=== PATIENT | male | born 1955 | race Caucasian/White ===

== ENCOUNTER → 2020-08-18 11:19 | Outpatient (CLI) | payer MEDICARE, SELFPAY ==
--- NOTE | ~2020-08-18 | XR_ITS ---
EXAMINATION: XR chest 2V 08/18/2020 12:02 INDICATION: Wheezing. No fever. PROCEDURE: 2 view chest COMPARISON: No prior studies for comparison. FINDINGS: The lungs are clear. The cardiomediastinal silhouette is within normal limits. There are no pleural effusions. There is no pneumothorax suspected. There is a calcified granuloma right lowe r lung zone. IMPRESSION: 1: NO ACUTE CARDIOPULMONARY DISEASE. Reviewed, dictated and finalized at location B.
== END ==
DX: R06.2 Wheezing (principal)
CPT/HCPCS: 71046

== ENCOUNTER → 2020-08-22 08:01 | Outpatient (CLI) | payer MEDICARE, SELFPAY ==
--- NOTE | ~2020-08-22 | CT_ITS ---
EXAMINATION: CT abdomen pelvis wo con EXAM DATE: 08/22/2020 08:23 INDICATION: UTI with hematuria, kidney stone . TECHNIQUE: Spiral CT of the abdomen and pelvis was performed without contrast. Axial, coronal and sag ittal images were reviewed. The dose-length product (DLP) for this examination was 734.79 mGy-cm. T he exposure was tailored according to patient size (auto mA exposure control), and iterative reconstr uction (ASIR) was used as additional dose reduction technique. There is no prior study for compariso n. FINDINGS: There is extensive sigmoid diverticulosis. Between the sigmoid colon and the bladder there is a contained region which could be a large diverticulum or stool-filled pocket/abscess, but there i s no fluid. This measures about 3.5 cm in diameter. There is a tract visualized between the main lume n of the colon in this pocket. There is extensive adjacent inflammation. Differential diagnosis inclu marbin inflammatory cancer and diverticulitis. Additionally, there is wall thickening of the bladder superior wall contiguous to this pocket. There is also small amount of gas within the bladder, could be from recent instrumentation, or could indica te fistula between the bladder and the contained stool-filled pocket region described above. There is no nephrolithiasis or hydronephrosis. The prostate is unremarkable. Some punctate pancrea tic calcifications, chronic pancreatitis. Several liver lesions most likely cysts largest in the left liver lobe at 1.7 cm. The adrenal glands, spleen are unremarkable. There is possible punctate joann lithiasis. There is no retroperitoneal or pelvic lymphadenopathy. Small left inguinal fat-containi ng hernia. There are no findings to suggest appendicitis. The stomach and small bowel are unremarkable. No free intraperitoneal gas. The heart is normal in size. There are no pericardial or pleural effusions. The lung bases are unremarkable. There are no osteoblastic or osteolytic lesions identified. 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 Mild scattered arter iosclerotic disease. IMPRESSION: 1. Stool filled pocket between sigmoid colon and bladder, with extensive regional inflammation, sigm oid and bladder wall thickening, and possible fistula to the bladder. Could be sequela from diverticu litis or inflammatory cancer. 2. Chronic pancreatitis. 3. Other chronic findings. I discussed this case, recommendation of antibiotics, follow-up CT, GI consult for colonoscopy to exc lude underlying inflammatory cancer with Sony PinedaMD at 08/22/2020 10:49CDT. Since patient h as UTI, could also consider cystogram to evaluate for fistula. Reviewed, dictated and finalized at location A. IMPRESSION: 1. Stool filled pocket between sigmoid colon and bladder, with extensive regio nal inflammation, sigmoid and bladder wall thickening, and possible fistula to the bladder. Could be sequela from diverticulitis or inflammatory cancer. 2. Chronic pancreatitis. 3. Other chronic findings. I discussed this case, recommendation of antibiotics, follow-up CT, GI consult for colonoscopy to exclude underlying inflammatory cancer with Sony PinedaMD at 08/22/2020 10:49CDT. Since patient has UTI, could also consider cystogr am to evaluate for fistula.
== END ==
DX: N20.0 Calculus of kidney (principal); R93.3 Abnormal findings on diagnostic imaging of other parts of digestive tract; K86.1 Other chronic pancreatitis
CPT/HCPCS: 74176

== ENCOUNTER 2021-08-13 11:56 | Emergency (ER) | payer MEDICARE, SELFPAY ==
--- NOTE | ~2021-08-13 | XR_ITS ---
EXAMINATION: XR abdomen/kub 1V INDICATION: Right flank pain TECHNIQUE: Supine views of the abdomen were obtained on 2 radiographs. COMPARISON: CT, 08/22/2020 FINDINGS: No definite urolithiasis is identified. There are phleboliths of the right pelvis. The kedar l gas pattern is normal. There is a calcified granuloma of the right lung base. 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 IMPRESSION: 1. No definite urolithiasis identified. Reviewed, dictated and finalized at location B.
--- NOTE | ~2021-08-13 | US_ITS ---
EXAMINATION: US scrotum doppler DATE: 08/13/2021 14:33 INDICATION: Right testicular pain and swelling TECHNIQUE: Testicular sonogram utilizing grayscale and Doppler COMPARISON: None. FINDINGS: The right testis measures 4.3 x 3.8 x 3.7 cm. The left testis measures 4.5 x 3.2 x 2.5 cm. Symmetric normal grayscale appearance to both testes. There is normal vascular flow to both testes. The right e pididymal head appears normal however the tail appears swollen with heterogeneous echogenicity and as ymmetric increased vascular flow on color Doppler suspicious for epididymitis. There are bilateral 4 mm epididymal cyst at the epididymal heads. Also arising from the head of the left epididymis is a sm all epididymal appendix. Bilateral small hydroceles. No varicocele. IMPRESSION: 1. Heterogeneous and swollen appearing right epididymal tail with asymmetric increased vascular flow suspicious for epididymitis. Reviewed, dictated and finalized at location A. IMPRESSION: 1. Heterogeneous and swollen appearing right epididymal tail with asymmetric i ncreased vascular flow suspicious for epididymitis.
[2021-08-13 12:14] VITALS: BP 136/93; PULSE 90; RESP 16; TEMP 36.5; O2SAT 100
--- NOTE | 2021-08-13 13:46 | PC.NURSE ---
JON Talbert at bedside for pt assessment.
[2021-08-13 14:07] LABS: Basophils Percent Auto 0.3 % (0.2-1.2); Eosinophils Absolute Auto 0.1 K/mm3 (0-0.3); Eosinophils Percent Auto 0.6 % (0-4.4); Hematocrit 45.2 % (42.0-52.0); Hemoglobin 14.7 g/dL (14.0-18.0); Immature Granulocyte Absolute 0.05 K/mm3 (0.00-0.031); Immature Granulocyte Percent A 0.4 % (0-0.5); Lymphocytes Absolute Auto 1.43 K/mm3 (0.9-3.2); Lymphocytes Percent Auto 11.5 % (18.3-44.2); Mean Corpuscular HGB Conc 32.5 g/dl (32-36); Mean Corpuscular Hemoglobin 29.9 pg (26-34); Mean Corpuscular Volume 91.9 fl (80-100); Mean Platelet Volume 11.8 fl (7.4-10.4); Monocytes Absolute Auto 1.2 K/mm3 (0.1-0.6); Monocytes Percent Auto 9.3 % (2.6-8.5); Neutrophils Absolute Auto 9.7 K/mm3 (1.3-6.7); Neutrophils Percent Auto 77.9 % (45.5-73.1); Platelet Count Result 162 k/mm3 (150-375); Red Blood Count 4.92 M/mm3 (4.6-6.20); White Blood Count 12.5 K/mm3 (4.5-10.0)
[2021-08-13 14:11] LABS: Add Urine Microscopic? YES; Appearance Urine Clear (Clear); Bacteria Urine Trace /hpf; Bilirubin Urine Negative (Negative); Color Urine Yellow (Yellow); Glucose Urine UA Negative (Negative); Ketones Urine Negative (Negative); Leukocyte Esterase Ur Trace LEU/UL (Negative); Nitrate Urine Negative (Negative); Protein Urine Negative (Negative); Specific Grav Ur 1.017 (1.001-1.035); Squamous Epithelial Cell Urine Rare /hpf (Few); Urobilinogen Urine Negative mg/dL (<2.0); WBC Urine 31-50 /hpf
[2021-08-13 14:12] LABS: Blood Urine Negative (Negative)
--- NOTE | 2021-08-13 14:46 | ED.MALEGU ---
HPI - Male Genitourinary General Chief complaint: Urogenital-Male Stated complaint: Testicular Pain Time Seen by Provider: 08/13/21 13:44 Source: patient Mode of arrival: ambulatory Limitations: no limitations History of Present Illness HPI Narrative: 66-year-old male presents today with complaints of right testicular pain that started on Friday. Patient denies any urinary symptoms. Patient noted of pain to the right groin and then the right testicle swelling and pain on Friday. Patient denies fever, abdominal pain, nausea, vomiting, or diarrhea. Patient denies hematuria, blood in the semen, or dysuria. Pain currently rated 2 out of 10. Related Data Allergies Allergy/AdvReac Type Severity Reaction Status Date / Time No Known Allergies Allergy Verified 08/13/21 13:30 Review of Systems Review of Systems: CONSTITUTIONAL: Denies fever, chills, or sweats. EYES: Denies visual changes, redness, or discharge. ENT: Denies rhinorrhea, congestion, sore throat, or otalgia. CARDIOVASCULAR: Denies chest pain, palpitations, or edema. RESPIRATORY: Denies cough or dyspnea. GASTROINTESTINAL: Denies abdominal pain, nausea, vomiting, or diarrhea. GENITOURINARY: Right testicular swelling and pain. Denies dysuria or hematuria. SKIN: Denies rash or itching. MUSCULOSKELETAL: Denies back pain, joint pain, or myalgia. NEUROLOGIC: Denies headache, numbness, dizziness, or weakness. PSYCHIATRIC: Denies anxiety or depression. PMFSH Past Medical History Medical History Arterial atherosclerosis Benign essential HTN Cholelithiasis Diverticulitis of both large and small intestine with abscess Diverticulosis Pancreatic calcification Rectovesical fistula Family History Family History Father Heart disease Mother Diabetes mellitus Social History Social History Social History: Single Smoking status: Never smoker Second hand tobacco smoke exposure: No Alcohol intake: never Substance use: never Substance use type: does not use Gender identity (if verbalized by the patient): Male Sexual Orientation (if Verbalized by the Patient): Straight or Heterosexual Exam Narrative: GENERAL: Well-appearing, well-nourished, and in no acute distress. HEAD: Normocephalic, atraumatic. EYES: PERRLA and EOMI. ENT: Nares clear, no rhinorrhea or epistaxis. Mucous membranes moist. Oropharynx without tonsillar hypertrophy exudate or other lesions. Bilateral TMs pearly arzate nonbulging NECK: Supple. No adenopathy or masses. No carotid bruits or JVD CHEST: Clear to auscultation. No respiratory distress. No wheezes rales or rhonchi HEART: Regular rate and rhythm. No murmur heard. Normal peripheral pulses. ABDOMEN: Soft, nontender, nondistended, normal active bowel sounds. : Right testicular tender with palpation, right testicle enlarged. No redness, penile discharge. EXTREMITIES: Normal range of motion. No edema. SKIN: Warm, dry, no rash. NEURO: No focal deficits. Alert and oriented x3. PSYCH: Normal mood and affect. Course Course Emergency Course: Reviewed labs and imaging with patient. Patient aware of diagnosis of epididymitis. Patient will be discharged home plan follow-up care with urology and antibiotics. All questions answered patient in agreement with plan of care. Vital Signs Vital signs: Vital Signs Temperature 36.5 C 08/13/21 12:14 Pulse Rate 90 08/13/21 12:14 Respiratory Rate 16 08/13/21 12:14 Blood Pressure 136/93 H 08/13/21 12:14 Pulse Oximetry 100 08/13/21 12:14 Temperature 36.5 C 08/13/21 12:14 Pulse Rate 90 08/13/21 12:14 Respiratory Rate 16 08/13/21 12:14 Blood Pressure 136/93 H 08/13/21 12:14 Pulse Oximetry 100 08/13/21 12:14 MDM - Male Genitourinary Differential Diagnosis Differential diagnosis: Likely urinar
[2021-08-13 15:29] LABS: Alanine Aminotransferase 22 U/L (4-50); Albumin Level 4.3 g/dL (3.5-5.1); Alkaline Phosphatase 88 U/L (38-126); Anion Gap 4 mmol/L (8-16); Aspartate Amino Transferase 27 U/L (17-59); Bilirubin,Total 0.4 mg/dL (0.2-1.3); Blood Urea Nitrogen 23 mg/dL (9-20); Carbon Dioxide 31 mmol/L (22-30); Chloride 103 mmol/L (98-107); Estimated CRCL calculation 79 ml/min; Estimated Glomerular Filt Rate > 60; Glucose 117 mg/dL (65-110); Potassium 4.6 mmol/L (3.4-5.0); Sodium 138 mmol/L (137-145)
== END 2021-08-13 17:05 | disposition home or self-care (01) ==
PROVIDERS: Emergency Provider Nurse Practitioner Family; PCP Family Medicine
DX: N45.1 Epididymitis (principal); I10 Essential (primary) hypertension
CPT/HCPCS: 36415; 74018; 76870; 80053; 81001; 85025; 87077; 87086; 87186; 93976; 99284